=== PATIENT | male | born 1955 | race Caucasian/White ===

== ENCOUNTER 2022-08-23 10:14 | Emergency (ER) | payer OTHER, MEDICARE ==
[~2022-08-23] VITALS: Ht 172.7 cm; Wt 117.2 kg
[2022-08-23] VITALS (20 sets, daily range): BP systolic 108–176; BP diastolic 57–93
[~2022-08-23 10:14] MED LIST: ALBUTEROL1 IN; ASPIRIN 8181 MG PO; CATAPRES-T0.2 MG/21 TD; COREG25 MG PO; ELIQUIS2.5 MG PO; FAMOTIDINE20 M1 PO; FLONASE AL50 MCG/ACT IN; HYDRALAZINE50 MG PO; ISOSORBIDE MONO60 MG PO; LIPITOR40 M1 PO; LISINOPRIL10 MG PO; LORATADINE10 M1 PO; MUPIROCIN2 % EX; NIFEDIPINE30 MG PO; PROBIOTI2 PO; SYMBICORT1 AE1 IN; TRAZODONE50 MG PO; VITAMIN D33000 UNIT PO
[2022-08-23 11:15] LABS: BASO% 0.5 % (0-3); EOS% 0.3 % (0-8); HEMATOCRIT 35.2 % (39.0-50.0); HEMOGLOBIN 11.1 g/dl (14.0-18.0); IMMATURE GRANULOCYTES 0.2 % (0.0-5.0); LYMPH% 8.9 % (15-41); MEAN CELL VOLUME 94.9 fL CALC (80.0-100.0); MEAN CORPUSCULAR HGB 29.9 pG CALC (26.0-32.0); MEAN CORPUSCULAR HGB CONC 31.5 g/dL CAL (32.0-36.0); MONO% 11.1 % (2-13); NEUT# 4.77 thou/uL (1.82-7.42); RED BLOOD COUNT 3.71 mill/uL (4.70-6.10); RED CELL DISTRI WIDTH 15.3 % (11.5-15.5)
[2022-08-23 11:22] LABS: ALBUMIN 4.7 g/dL (3.2-5.0); BILIRUBIN, TOTAL 0.7 mg/dL (0.2-1.3); POTASSIUM 3.8 mmol/l (3.5-5.1); TOTAL PROTEIN 7.8 g/dL (6.3-8.2)
[2022-08-23 11:33] LABS: CREATININE 7.5 mg/dL (0.7-1.3)
[2022-08-23] MEDS ORDERED: ZOLPIDEM TARTRA10 MG PO (13:31)
[2022-08-23] MEDS ORDERED: FUROSEMIDE20 MG PO (13:32)
--- NOTE | 2022-08-26 13:50 | NUR ---
PRELIMINARY RESULTS CALLED AND FAXED TO [facility] 1/4 VIALS GRAM (+). FINAL RESULTS SHOW 1/4 GROWING STAPH EPI, RESULTS FAXED TO [facility]
== END 2022-08-23 17:02 | disposition short-term general hospital (02) | DRG 193 ==
LOC: ED 10:14
PROVIDERS: Family Medicine
DX: J18.9 Pneumonia, unspecified organism (principal); N18.6 End stage renal disease; J44.0 Chronic obstructive pulmonary disease with (acute) lower respiratory infection; J44.1 Chronic obstructive pulmonary disease with (acute) exacerbation; I13.2 Hypertensive heart and chronic kidney disease with heart failure and with stage 5 chronic kidney disease, or end stage renal disease; I50.9 Heart failure, unspecified; Z99.2 Dependence on renal dialysis; Z95.0 Presence of cardiac pacemaker; Z79.01 Long term (current) use of anticoagulants; Z95.2 Presence of prosthetic heart valve

== ENCOUNTER 2022-09-14 11:11 | Emergency (ER) | payer OTHER, MEDICARE ==
[2022-09-14] VITALS (14 sets, daily range): BP systolic 132–162; BP diastolic 69–91
[~2022-09-14] VITALS: Ht 172.7 cm; Wt 261.0 kg
[~2022-09-14 11:11] MED LIST changes: +FUROSEMIDE20 MG PO; +ZOLPIDEM TARTRA10 MG PO
[2022-09-14 12:06] LABS: BASO% 0.4 % (0-3); EOS% 3.3 % (0-8); HEMATOCRIT 26.1 % (39.0-50.0); HEMOGLOBIN 8.2 g/dl (14.0-18.0); IMMATURE GRANULOCYTES 0.2 % (0.0-5.0); LYMPH% 9.2 % (15-41); MEAN CELL VOLUME 98.9 fL CALC (80.0-100.0); MEAN CORPUSCULAR HGB 31.1 pG CALC (26.0-32.0); MEAN CORPUSCULAR HGB CONC 31.4 g/dL CAL (32.0-36.0); MONO% 11.6 % (2-13); NEUT# 3.83 thou/uL (1.82-7.42); NEUT% 75.3 % (42-76); RED BLOOD COUNT 2.64 mill/uL (4.70-6.10); RED CELL DISTRI WIDTH 15.6 % (11.5-15.5)
[2022-09-14 12:24] LABS: MAGNESIUM 1.8 mg/dL (1.6-2.3); POTASSIUM 4.2 mmol/l (3.5-5.1)
[2022-09-14 12:29] LABS: ALBUMIN 3.7 g/dL (3.2-5.0); BILIRUBIN, TOTAL 0.4 mg/dL (0.2-1.3); CREATININE 7.9 mg/dL (0.7-1.3); TOTAL PROTEIN 6.2 g/dL (6.3-8.2)
[2022-09-14 12:44] LABS: HEMATOCRIT 26.8 % (39.0-50.0); HEMOGLOBIN 8.5 g/dl (14.0-18.0)
[2022-09-14 14:07] LABS: URINE BILIRUBIN - DIPSTICK NEGATIVE (NEGATIVE); URINE BLOOD DIPSTICK NEGATIVE (NEGATIVE); URINE COLOR YELLOW; URINE GLUCOSE - DIPSTICK NEGATIVE (NEGATIVE); URINE KETONE NEGATIVE (NEGATIVE); URINE LEUK ESTERASE NEGATIVE (NEGATIVE); URINE PH 5.5 (4.5-8.0); URINE PROTEIN - DIPSTICK 100 mg/dL (NEG-TRACE); URINE SPECIFIC GRAVITY 1.015; URINE UROBILINOGEN - DIPSTICK 0.2 E.U./dL (0.2)
[2022-09-14 14:09] LABS: URINE EPITHELIAL CELLS FEW EPI/hpf (0-FEW); URINE MUCUS MODERATE hpf (NONE-FEW); URINE NITRITE - DIPSTICK NEGATIVE (Negative)
[2022-09-14] MEDS ORDERED: HYDROCO/APAP1 TA9 PO (14:28)
== END 2022-09-14 14:45 | disposition left against medical advice (07) | DRG 312 ==
LOC: ED 11:11
PROVIDERS: Nurse Practitioner
DX: R55 Syncope and collapse (principal); N18.6 End stage renal disease; I12.0 Hypertensive chronic kidney disease with stage 5 chronic kidney disease or end stage renal disease; D64.9 Anemia, unspecified; Z53.29 Procedure and treatment not carried out because of patient's decision for other reasons; Z99.2 Dependence on renal dialysis; J44.9 Chronic obstructive pulmonary disease, unspecified; Z95.0 Presence of cardiac pacemaker; Z79.01 Long term (current) use of anticoagulants; Z95.2 Presence of prosthetic heart valve

== ENCOUNTER 2024-05-28 16:09 | Emergency (ER) | payer OTHER, MEDICARE ==
[~2024-05-28] VITALS: Ht 172.7 cm; Wt 109.7 kg
[2024-05-28] VITALS (8 sets, daily range): BP systolic 110–130; BP diastolic 56–72
[~2024-05-28 16:09] MED LIST changes: +HYDROCO/APAP1 TA9 PO
[2024-05-28] MEDS ORDERED: BENZONATATE 200 MG/CAP PO ONE (19:55)
[2024-05-28] MEDS ORDERED: DOXYCYCLINE HYCLATE 100 MG/CAP PO ONE (19:55)
[2024-05-28] MEDS ORDERED: VIBRAMYCIN100 M2 PO (19:56)
[2024-05-28] MEDS ORDERED: BENZONATATE200 MG PO (19:56)
== END 2024-05-28 20:29 | disposition home or self-care (01) | DRG 204 ==
LOC: ED 16:09
DX: R05.9 Cough, unspecified (principal); N18.6 End stage renal disease; L60.0 Ingrowing nail; I12.0 Hypertensive chronic kidney disease with stage 5 chronic kidney disease or end stage renal disease; L03.031 Cellulitis of right toe; J44.9 Chronic obstructive pulmonary disease, unspecified; Z99.2 Dependence on renal dialysis; Z95.2 Presence of prosthetic heart valve; Z95.0 Presence of cardiac pacemaker